=== PATIENT | female | born 1975 | race African-American/Black ===

== ENCOUNTER 2016-03-26 19:14 | Emergency (ER) | payer OTHER ==
[~2016-03-26] VITALS: Ht 167.6 cm; Wt 67.6 kg
[~2016-03-26 19:14] MED LIST: AMOXIL500 MG PO; BENTYL20 MG PO; CIPRO 500MG TA500 MG PO; CIPRO250 M1 PO; CLARITHROMYCIN500 MG PO; FLOMAX(MONOGRA0.4 MG PO; GOOD SENSE IBU200 MG PO; IBUPROFEN600 M1 PO; LEVSIN0.125 MG PO; NORCO 325 MG-51 TAB PO; PERCOCET 325 MG1 TA2 PO; PERCOCET 5-3251 EACH PO; PROTONIX 40MG T40 MG PO; TRAMADOL HCL50 M1 PO; ZOFRAN4 M1 PO; ZOFRAN4 M1 SL; ZOFRAN4 MG PO
[2016-03-26 19:19] VITALS: BP 118/82
--- NOTE | 2016-03-26 19:26 | ED GENERAL ADULT ---
History of Present Illness General Chief Complaint: General Adult Stated Complaint: PT HAS PAIN LOWER BACK ALL THE WAY DOWN Source: patient Exam Limitations: no limitations Vital Signs & Intake/Output Vital Signs & Intake/Output Vital Signs Date Time Temp Pulse Resp B/P Pulse O2 O2 Flow FiO2 Ox Delivery Rate 03/26 1945 98 Room Air 03/26 1918 99.2 99 16 118/82 98 Room Air ED Intake and Output 03/27 0000 03/26 1200 Intake Total 0 Output Total Balance 0 Intake, Oral 0 Patient 149 lb Weight Allergies Coded Allergies: NO KNOWN ALLERGIES (12/20/15) Reconcile Medications Cyclobenzaprine HCl 5 MG TABLET 1 TAB PO TIDPRN PRN MUSCLE STRAIN Hydrocodone/Acetaminophen (Vicodin 5-300 MG Tablet) 5 MG-300 MG TABLET 1 TAB PO BID PRN PAIN Oxycodone HCl/Acetaminophen (Percocet 5-325 MG Tablet) 5 MG-325 MG TABLET 1 TAB PO Q6 PAIN Tramadol HCl 50 MG TABLET 1 TAB PO BIDP PRN BREAKTHROUGH PAIN Tramadol HCl 50 MG TABLET 1 TAB PO BIDP PRN BREAKTHROUGH PAIN Triage Note: PT STATES HER RIGH HIP SHOOTING INTO HER GROIN HURTS. PT REPORTS PAIN STARTED 1 WEEK AGO. PT Triage Nurses Notes Reviewed? yes Onset: Gradual Duration: week(s): (1) Timing: no prior history Injury Environment: home Severity: moderate Severity Numbers: 8 Modifying Factors: Improves With: immobilization. Worsens With: movement. : No Patient currently breastfeeds: No HPI: Patient is a 40-year-old female presenting to the emergency department which is complaining of right low back pain, right hip pain it's been going on for 1 week at this time. Denies any specific injury. Pain is worse with movement. Denies any urinary frequency or urgency or dysuria. She is tried warm compresses and ibuprofen without relief. Denies numbness or tingling. Pain does radiate down her right thigh at times. No weakness in the legs. Denies abdominal pain. No recent travel. Denies history of similar symptoms. She does report that she's had back pain in the past. No heavy lifting. (SADE CARTWRIGHT) Past History Travel History Traveled to [place] past 21 day No Medical History Any Pertinent Medical History? 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 No (SADE CARTWRIGHT) Review of Systems Review of Systems Constitutional: Reports: no symptoms. Comments Review of systems: See HPI, All other systems negative. Constitutional, no chills fever or weight loss HEENT: No visual changes no sore throat no congestion Cardiovascular: No chest pain ,palpitation Skin, no jaundice no rashes Respiratory: No dyspnea cough sputum or hemoptysis GI: No nausea no vomiting : No dysuria No hematuria Muscle skeletal: no neck pain, Neurologic: No numbness no confusion Psych: No stress anxiety Immunology: No splenectomy or history of AIDS (SADE CARTWRIGHT) Physical Exam Physical Exam General Appearance: well developed/nourished, no apparent distress, alert, awake , comfortable Comments: Well-developed well-nourished person in no acute distress HEENT: Pupils equally round and reactive to light and accommodation. Nose is atraumatic. Neck: Normal inspection, full range of motionbeen tenderness. Back: no CVA tenderness. Tender to palpation in the lumbar right paraspinal region. Limited range of motion secondary to pain. Limited forward flexion of the back secondary to pain. Cardiovascular: Regular rate and rhythms no murmurs rubs or gallops, normal JVP Respiratory: Chest nontender. No respiratory distress.breath sounds clear to auscultation bilaterally Abdomen: Soft, nontender nondistended, no appreciable organomegaly. Normal bowel sounds. No ascites, no rebound or guarding. Extremity: No edema, no calf tenderness to palpation, normal and equal pulses. Tender to palpation over the right hip area. Positive tenderness to palpation over the right si joint. Pain with passive range of motion of the right hip especially with right hip abduction. Neuro: Alert oriented x3, motor sensory normal, patellar reflexes are 2+ bilaterally. Skin: No appreciable rash on exposed skin, skin is warm and dry. Psych: Mood and affect is normal, memory and judgment is normal. Core Measures ACS in differential dx? No CVA/TIA Diagnosis: No Severe Sepsis Present: No Septic Shock Present: No (SADE CARTWRIGHT) Progress Differential Diagnoses I considered the following diagnoses in my evaluation of the patient: Muscle strain, hip contusion, kidney stone, sciatica, UTI Plan of Care: Current Medications Sig/Simone Start time Last Medication Dose Stop Time Status Admin Ketorolac 30 MG ONE ONE 03/26 1929 UNVr Tromethamine 03/26 1930 (Toradol) Initial ED EKG: none Comments: 03/26/2016 7:37:57 PMPatient medicated with IM Toradol here in the emergency department for pain. Pain is reproducible exam and the right low back and right hip area. Limited range of motion secondary to pain. Patient not having any CVA tenderness or urinary symptoms are unlikely UTI or urological in nature. Likely muscle strain. No known injury or falls, unlikely fracture. Patient will be treated symptomatically with pain medication and muscle relaxers. No indication for x-ray at this time. Patient will return for worsening symptoms or concerns. (SADE CARTWRIGHT) Departure Departure Time of Disposition: 1925 Disposition: HOME OR SELF CARE Condition: Stable Clinical Impression Primary Impression: Hip strain Qualifiers: Encounter type: initial encounter Laterality: right Qualified Code: S76.011A - Strain of muscle, fascia and tendon of right hip, initial encounter Secondary Impressions: Back pain Qualifiers: Back pain location: low back pain Chronicity: acute Back pain laterality: right Sciatica presence: with sciatica Sciatica laterality: sciatica of right side Qualified Code: M54.41 - Lumbago with sciatica, right side Referrals: SAMMIE KOEHLER MD (PCP/Family) Additional Instructions: Follow-up with orthopedics if symptoms persist. Take Vicodin for severe pain. Take Flexeril as prescribed for muscle relaxes. Apply warm compresses. Return for worsening symptoms or concerns. Departure Forms: Customer Survey General Discharge Information Prescriptions: Current Visit Scripts Hydrocodone/Acetaminophen (Vicodin 5-300 MG Tablet) 1 TAB PO BID PRN PAIN #8 TAB Cyclobenzaprine HCl 1 TAB PO TIDPRN PRN MUSCLE STRAIN #15 TAB (SADE CARTWRIGHT) PA/MEDIA CENTER DIRECTOR SCHOOL Co-Sign Statement Statement: ED Attending supervision documentation- [] I saw and evaluated the patient. I have also reviewed all the pertinent lab results and diagnostic results. I agree with the findings and the plan of care as documented in the PA's/MEDIA CENTER DIRECTOR SCHOOL's documentation. [X] I have reviewed the ED Record and agree with the PA's/MEDIA CENTER DIRECTOR [employer]CHOOL's documentation. [] Additions or exceptions (if any) to the PAs/MEDIA CENTER DIRECTOR SCHOOL's note and plan are summarized below: [] (MALCOLM POTTS,LACY) Critical Care Note Critical Care Note Critical Care Time: non-applicable (SADE CARTWRIGHT)
[2016-03-26] MEDS ORDERED: VICODIN 5-3001 EACH PO (19:28)
[2016-03-26] MEDS ORDERED: CYCLOBENZAPRINE5 M2 PO (19:28)
== END 2016-03-26 19:48 ==
LOC: ERH 19:14
DX: S76.011A Strain of muscle, fascia and tendon of right hip, initial encounter (principal); M54.5 Low back pain; X58.XXXA Exposure to other specified factors, initial encounter
CPT/HCPCS: 96372; J1885

== ENCOUNTER 2016-04-22 15:06 | Emergency (ER) | payer OTHER ==
[~2016-04-22] VITALS: Ht 167.6 cm; Wt 65.8 kg
[~2016-04-22 15:06] MED LIST changes: +CYCLOBENZAPRINE5 M2 PO; +VICODIN 5-3001 EACH PO
[2016-04-22 15:12] VITALS: BP 126/86
--- NOTE | 2016-04-22 16:30 | ED MVC/FALL/TRAUMA COMPLAINT ---
History of Present Illness General Chief Complaint: Fall Stated Complaint: S/P FALL BACK AND RT LEG PAIN Source: patient, old records Exam Limitations: no limitations Vital Signs & Intake/Output Vital Signs & Intake/Output Vital Signs Date Time Temp Pulse Resp B/P Pulse O2 O2 Flow FiO2 Ox Delivery Rate 04/22 1512 97.7 88 20 126/86 99 Room Air Allergies Coded Allergies: NO KNOWN ALLERGIES (12/20/15) Reconcile Medications Cyclobenzaprine HCl 5 MG TABLET 1 TAB PO TIDPRN PRN MUSCLE STRAIN Hydrocodone/Acetaminophen (Vicodin 5-300 MG Tablet) 5 MG-300 MG TABLET 1 TAB PO BID PRN PAIN Oxycodone HCl/Acetaminophen (Percocet 5-325 MG Tablet) 5 MG-325 MG TABLET 1 TAB PO Q6 PAIN Oxycodone HCl/Acetaminophen (Percocet 5-325 MG Tablet) 5 MG-325 MG TABLET 1 TAB PO TID PRN BREAKTHROUGH PAIN Tramadol HCl 50 MG TABLET 1 TAB PO BIDP PRN BREAKTHROUGH PAIN Tramadol HCl 50 MG TABLET 1 TAB PO BIDP PRN BREAKTHROUGH PAIN Triage Note: PT TO ED C/O RIGHT SIDED PAIN, HIP, BUTTOCKS, LEG AND LOWER BACK PAIN. STATES FELL ON ICE 2 DAYS AGO. DENIES HEAD STRIKE. HAS TRIED OTC MEDS WITH NO RELIEF. Triage Nurses Notes Reviewed? yes Onset: Abrupt Duration: day(s): (2), constant Timing: recent history Severity: moderate Severity Numbers: 7 Injuries/Fall Location: back, pelvis Method of Injury: fall Loss of Consciousness: no loss of consciousness Modifying Factors: Improves With: rest. Worsens With: movement. Associated Symptoms: DENIES : No Patient currently breastfeeds: No HPI: 40-year-old female with history of chronic back pain presents emergency room complaining of right lower back right hip and buttock pain after she slipped and fell in the snow 2 days ago. She states she's had constant aching pain since that is worse with movement better at rest. She's been taking ibuprofen with no improvement. She did not hit her head there is no loss of consciousness. She denies any abdominal pain urinary symptoms. The pain radiates into her right thigh she denies any numbness tingling or weakness to her leg. She denies any knee foot or ankle pain there is no left leg or left back injury. She did not injure her neck or arms. There are no other modifying factors or associated symptoms (BRIAN JUARES) Past History Travel History Traveled to [place] past 21 day No Medical History Any Pertinent Medical History? 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 No (BRIAN JUARES) Review of Systems Review of Systems Constitutional: Reports: see HPI. All Other Systems: Reviewed and Negative Comments Review of systems: See HPI, All other systems negative. Constitutional, no chills no fever, no malaise HEENT: no sore throat no congestion Cardiovascular: No chest pain , no palpitation Skin, no jaundice no rashes, no change in skin Respiratory: No dyspnea no cough no sputum no hemoptysis GI: No nausea no vomiting, no diarrhea, no bloating/constipation : No dysuria Muscle skeletal: No joint pain, no joint swelling, back pain, no neck pain, Neurologic: No numbness no headache Psych: No stress Heme/endocrine: No bruising no bleeding Immunology: No lymphadenopathy (BRIAN JUARES) Physical Exam Physical Exam General Appearance: well developed/nourished, alert, awake Comments: Well-developed well-nourished person in no acute distress HEENT: Normal EENT exam; PERRL, EOMI, HEAD is atraumatic. moist mucous membranes. Neck: Supple, midline or paracervical tenderness, normal range of motion without pain or tenderness Back: Right sided paralumbar muscle tenderness to palpation no midline tenderness no ecchymosis or signs of trauma, no CVA tenderness. Full range of motion Cardiovascular: Regular rate and rhythms no murmurs rubs or gallops Respiratory: Chest nontender.There were no bony deformities, no asymmetry. No respiratory distress. Patient speaking in full complete sentences. Breath sounds clear to auscultation bilaterally: NO W/R/R Abdomen: Soft, nontender nondistended, no appreciable organomegaly. Normal bowel sounds. No rebound/guarding, upper Extremity: No edema, full range of motion of extremities, normal and equal pulses bilaterally, 5 out of 5 strength noted to bilateral upper extremities Hip/Pelvis: Atraumatic/Stable. FROM. No pain with pelvic compression Knee: Atraumatic/stable. FROM. No joint swelling, no effusion. No laxity. No pain with ROM Leg: Atraumatic. Nontender. No edema, 5 out of 5 strength in the lower extremity, normal dorsiflexion of great toe bilaterally, gross sensation is intact, patellar tendon reflex 2+ bilaterally. Ankle/Foot: Atraumatic/stable. Skin intact. FROM. No swelling, no effusion. No laxity on exam Pulses: Normal/equal DP/PT pulses bilaterally. Brisk cap refill Neuro: Alert oriented x3, motor sensory normal. There were no obvious focal neurologic abnormalities. Skin: No appreciable rash on exposed skin, skin is warm and dry. Psych: Mood and affect is normal, memory and judgment is normal. Core Measures ACS in differential dx? No Severe Sepsis Present: No Septic Shock Present: No (JUSTIN GREEN,BRIAN) Progress Differential Diagnosis: abd injury, C/T/L spine injury, ext injury, pelvis injury, pnemothorax, spinal cord injury Plan of Care: Orders Procedure Date/time Status XRY-LUMBOSACRAL SPINE AP & LAT 04/22 1642 Active XRY-HIP 2-3 VIEWS, RIGHT 04/22 164 Active X-rays ordered patient medicated with Percocet ambulatory to the room with steady gait Discussed with patient if her x-ray findings need for supportive care rest ice prescription for [place] was provided advised close follow-up with her primary care physician return anytime sooner with any concerns. Pt amb with steady gait upon discharge (JUSTIN GREEN,BRIAN) Diagnostic Imaging: Viewed by Me: Radiology Read. Discussed w/RAD: Radiology Read. Radiology Impression: PATIENT: SILKE DA SILVA PRESENT AGE: 40 PATIENT ACCOUNT NO: [id number] : 76 LOCATION: [facility] ORDERING PHYSICIAN: BRIAN GREEN SERVICE DATE: 04/22/16-1642 EXAM TYPE: RAD - XRY-LUMBOSACRAL SPINE AP & LAT EXAMINATION: XR LUMBOSACRAL SPINE CLINICAL INFORMATION: Fall. Pain. COMPARISON: Lumbar spine 03/03/2013 TECHNIQUE: AP and lateral views of the lumbosacral spine were obtained. Cone-down AP and lateral view of the lumbosacral junction FINDINGS: Normal variant of a partial L5 transitional vertebrae. The left transverse process articulates with the sacrum. Vertebrae have normal height and alignment. Lumbar disc height is normal. Facet joints are normal. Compared to prior study there is been no change. IMPRESSION: Normal lumbar spine. A DICTATED BY: SONI SAEZ MD DATE/TIME DICTATED:04/22/161857 [address] STENOGRAPHER:SANCHEZ DATE/TIME TRANSCRIBED:04/22/161857 CONFIDENTIAL, DO NOT COPY WITHOUT APPROPRIATE AUTHORIZATION. <Electronically signed in Other Vendor System> SIGNED BY: SONI SAEZ MD 04/22/161902, PATIENT: SILKE DA SILVA PRESENT AGE: 40 PATIENT ACCOUNT NO: [id number] : 76 LOCATION: [facility] ORDERING PHYSICIAN: BRIAN GREEN SERVICE DATE: 04/22/16 EXAM TYPE: RAD - XRY-HIP 2-3 VIEWS, RIGHT EXAMINATION: XR HIP, RIGHT CLINICAL INFORMATION: Right hip pain. COMPARISON: Right hip 03/03/2013 TECHNIQUE: Two views of the right hip. FINDINGS: Bones and soft tissues are normal. No fracture. Alignment is anatomic. Hip joint space is maintained. IMPRESSION: Normal right hip. DICTATED BY: SONI SAEZ MD DATE/TIME DICTATED:04/22/161856 [address] STENOGRAPHER:SANCHEZ DATE/TIME TRANSCRIBED:1856 CONFIDENTIAL, DO NOT COPY WITHOUT APPROPRIATE AUTHORIZATION. < Electronically signed in Other Vendor System> SIGNED BY: SONI SAEZ MD 1900 (JUSTIN GREEN,BRIAN) Departure Departure Time of Disposition: 1905 Disposition: HOME OR SELF CARE Condition: Stable Clinical Impression Primary Impression: Lumbar strain Secondary Impressions: Fall, Hip strain Referrals: RODO POTTS,SAMMIE (PCP/Family) Additional Instructions: Rest ice ibuprofen 600 mg every 8 hours, Brighton for breakthrough pain. Use caution as this is a narcotic highly addictive no driving drinking alcohol while taking. Follow-up with your primary care physician this week This prescription was sent to your pharmacy Departure Forms: Customer Survey General Discharge Information Prescriptions: Current Visit Scripts Oxycodone HCl/Acetaminophen (Percocet 5-325 MG Tablet) 1 TAB PO TID PRN BREAKTHROUGH PAIN #10 TAB (BRIAN JUARES) PA/GLUING MACHINE OPERATOR Co-Sign Statement Statement: ED Attending supervision documentation- [] I saw and evaluated the patient. I have also reviewed all the pertinent lab results and diagnostic results. I agree with the findings and the plan of care as documented in the PA's/GLUING MACHINE OPERATOR's documentation. [X] I have reviewed the ED Record and agree with the PA's/GLUING MACHINE OPERATOR's documentation. [] Additions or exceptions (if any) to the PAs/GLUING MACHINE OPERATOR's note and plan are summarized below: [] (ASHLEE JOSHI DO
[2016-04-22] MEDS ORDERED: PERCOCET 5-3251 EACH PO (18:48)
--- NOTE | 2016-04-22 19:01 | RADIOLOGY REPORT ---
EXAMINATION: XR HIP, RIGHT CLINICAL INFORMATION: Right hip pain. COMPARISON: Right hip 03/03/2013 TECHNIQUE: Two views of the right hip. FINDINGS: Bones and soft tissues are normal. No fracture. Alignment is anatomic. Hip joint space is maintained. IMPRESSION: Normal right hip.
--- NOTE | 2016-04-22 19:03 | RADIOLOGY REPORT ---
EXAMINATION: XR LUMBOSACRAL SPINE CLINICAL INFORMATION: Fall. Pain. COMPARISON: Lumbar spine 03/03/2013 TECHNIQUE: AP and lateral views of the lumbosacral spine were obtained. Cone-down AP and lateral view of the lumbosacral junction FINDINGS: Normal variant of a partial L5 transitional vertebrae. The left transverse process articulates with the sacrum. Vertebrae have normal height and alignment. Lumbar disc height is normal. Facet joints are normal. Compared to prior study there is been no change. IMPRESSION: Normal lumbar spine. A
== END 2016-04-22 19:08 ==
LOC: ERH 15:06
DX: S39.012A Strain of muscle, fascia and tendon of lower back, initial encounter (principal); S76.011A Strain of muscle, fascia and tendon of right hip, initial encounter; W00.0XXA Fall on same level due to ice and snow, initial encounter
CPT/HCPCS: 72100; 73502-RT

== ENCOUNTER 2016-05-21 11:57 | Emergency (ER) | payer OTHER ==
[~2016-05-21] VITALS: Ht 167.6 cm; Wt 59.9 kg
--- NOTE | 2016-05-21 13:01 | ED GI/GU/ABDOMINAL COMPLAINT ---
History of Present Illness General Chief Complaint: Female Urogenital Problems Stated Complaint: ABD PAIN/? KIDNEY STONES Source: patient Exam Limitations: no limitations Vital Signs & Intake/Output Vital Signs & Intake/Output Vital Signs Date Time Temp Pulse Resp B/P Pulse O2 O2 Flow FiO2 Ox Delivery Rate 05/21 2021 78 18 115/62 97 Room Air 05/21 1830 78 18 117/61 99 Room Air ED Intake and Output 05/22 0000 05/21 1200 Intake Total 1000 Output Total Balance 1000 Intake, IV 1000 Patient 132 lb Weight Allergies Coded Allergies: NO KNOWN ALLERGIES (12/20/15) Reconcile Medications Ondansetron (Zofran Odt) 4 MG TAB.RAPDIS 1 TAB SL TID PRN nausea Oxycodone HCl/Acetaminophen (Percocet 5-325 MG Tablet) 5 MG-325 MG TABLET 1 TAB PO BID PRN pain Triage Note: 40 Y/O FEMALE C/O R HIP AND R FLANK PAIN; HX KIDNEY STONES AND STATES THIS FEELS SIMILIAR. REPORTS "A LITTLE" BLOOD IN URINE. ALSO REPORTS PAIN WITH URINATION. TOOK ALEVE AT 0900 WITH NO RELIEF. Triage Nurses Notes Reviewed? yes ? N Is pt currently ? No HPI: THIS PATIENT is a 40-year-old female who presented to the emergency department today for evaluation of bilateral flank pain. The patient reported that the pain began yesterday and has been worsening. It is constant and gets worse in waves. The pain except a 10 out of 10, sharp, and radiates to bilateral groin regions. The patient reported associated nausea, but no vomiting. She reported that she has had kidney stones in the past in the pain feels similar. She reported some blood in her urine as well as burning and frequency. No urgency. The patient denied any fevers, chills, chest pain, difficulty breathing, or any other associated symptoms. She tried taking Advil without any relief of her symptoms. (CRISTHIAN LOPEZ,MARY ANNE) Past History Travel History Traveled to [place] past 21 day No Medical History Any Pertinent Medical History? see below for history Neurological: NONE EENT: NONE Cardiovascular: NONE Respiratory: NONE Gastrointestinal: PANCREATITIS Hepatic: NONE Renal: nephrolithiasis, KIDNEY STENT/REMOVED Musculoskeletal: NONE Psychiatric: ON METHADONE Endocrine: NONE Blood Disorders: anemia Cancer(s): NONE WELDER PLASTIC/Reproductive: OVARIAN CYST Surgical History Surgical History: non-contributory, N Psychosocial History What is your primary language Nepali Tobacco Use: Current Daily Use Daily Tobacco Use Amount/Type: => 5 Cigarettes daily Family History Hx Contributory? No (MARY ANNE MORROW PA-C) Review of Systems Review of Systems Constitutional: Reports: no symptoms. EENTM: Reports: no symptoms. Respiratory: Reports: no symptoms. Cardiovascular: Reports: no symptoms. GI: Reports: see HPI. Genitourinary: Reports: see HPI. Musculoskeletal: Reports: no symptoms. Skin: Reports: no symptoms. Neurological/Psychological: Reports: no symptoms. All Other Systems: Reviewed and Negative (MARY ANNE MORROW PA-C) Physical Exam Physical Exam Gastrointestinal: normal bowel sounds, soft, non-tender, no organomegaly, NO PERITONEAL SIGNS. nO REBOUND OR GUARDING. nO mCbURNEY'S POINT TENDERNESS. nEGATIVE Juarez SIGN Comments: Well-developed well-nourished person in no acute distress HEENT: Normal EENT exam, head normocephalic, moist mucous membranes Neck: Supple, no lymphadenopathy Back: Normal gait. No midline tenderness. Bilateral CVA tenderness Cardiovascular: Regular rate and rhythm with no murmurs Respiratory: No respiratory distress. Speaking sentences Extremity: Normal and equal pulses Neuro: Alert oriented x3, cranial nerves II through XII grossly intact. Skin: No appreciable rash on exposed skin, skin is warm and dry. Psych: Mood and affect is normal Core Measures ACS in differential dx? No Severe Sepsis Present: No Septic Shock Present: No (MARY ANNE MORROW PA-C) Progress Differential Diagnosis: appendicitis, biliary colic, bowel obstruction, colon cancer, cholecystitis, diverticulitis, ectopic , endometritis, gastritis, hepatitis, ischemic bowel, inflamm bowel dis, ovarian cyst, ovarian torsion, pancreatitis, PID/cervicitis, PUD/GERD, perforated viscous, threatened AB, UTI/pyelo Plan of Care: Orders Procedure Date/time Status CULTURE,URINE 05/21 1234 Active COMPREHENSIVE METABOLIC PANEL 05/21 1234 Complete CBC WITHOUT DIFFERENTIAL 05/21 1234 Complete URINE 05/21 1209 Complete URINALYSIS 05/21 1209 Complete Current Medications Sig/Simone Start time Last Medication Dose Stop Time Status Admin Oxycodone/ 1 TAB ONCE ONE 05/21 1944 UNVr Acetaminophen 05/21 1945 (Percocet) Laboratory Tests 05/21/16 1618: Urine Color YEL, Urine Clarity CLEAR, Urine pH 6.5, Ur Specific [place] 1.025, Urine Protein NEG, Urine Ketones 15 H, Urine Nitrite NEG, Urine Bilirubin NEG, Urine Urobilinogen 0.2, Ur Leukocyte Esterase NEG, Ur Microscopic EXAM NOT REQUIRED, Urine Hemoglobin NEG, Urine Glucose NEG, Urine Test NEGATIVE 05/21/16 1256: Anion Gap 11, Estimated GFR > 60, BUN/Creatinine Ratio 11.3, Glucose 90, Calcium 9.6, Total Bilirubin 0.5, AST 17, ALT 36, Alkaline Phosphatase 74, Total Protein 7.6, Albumin 4.2, Globulin 3.4, Albumin/Globulin Ratio 1.2, CBC w Diff NO MAN DIFF REQ, RBC 3.68 L, MCV 90.8, MCH 29.9, RDW 15.5 H, MPV 8.2, Gran % 72.5, Lymphocytes % 19.6 L, Monocytes % 5.5, Eosinophils % 0.4, Basophils % 2.0, Absolute Granulocytes 6.3, Absolute Lymphocytes 1.7, Absolute Monocytes 0.5, Absolute Eosinophils 0, Absolute Basophils 0.2, PUBS MCHC 32.9 L Microbiology 05/21 1618 URINE ROUT: Urine Culture - RECD Diagnostic Imaging: Viewed by Me: CT Scan. Discussed w/RAD: CT Scan. Radiology Impression: PATIENT: SILKE DA SILVA PRESENT AGE: 40 PATIENT ACCOUNT NO: [id number] : 76 LOCATION: [facility] ORDERING PHYSICIAN: MARY ANNE MORROW PA-C SERVICE DATE: 05/21/16 EXAM TYPE: CAT - CT ABD & PELVIS W IV CONTRAST EXAMINATION: CT ABDOMEN AND PELVIS WITH CONTRAST CLINICAL INFORMATION: Flank pain. Rule out kidney stone. COMPARISON: CT abdomen 12/20/2015 TECHNIQUE: Multidetector volumetric imaging was performed of the abdomen and pelvis before and after the IV administration of 95 mL of Optiray 320 intravenous contrast. Sagittal and coronal reformatted images were obtained on the technologist's workstation. DLP: 231 mGy-cm FINDINGS : LUNG BASES: There is platelike atelectasis left lower lobe. The heart size is normal. LIVER, GALLBLADDER, AND BILIARY TREE: The liver is normal in size, shape , and attenuation. No focal hepatic lesion or biliary ductal dilatation is present. The gallbladder is unremarkable with no evidence of radiopaque gallstones, gallbladder wall thickening, or obvious pericholecystic inflammatory changes. PANCREAS: Unremarkable. SPLEEN: Unremarkable. ADRENAL GLANDS: Unremarkable. KIDNEYS AND URETERS: The kidneys are normal in size, shape, and attenuation. There are 2 mm small radiopaque calculi in upper, mid and lower pole left kidney approximately 5 in number. No focal caliectasis or hydronephrosis seen. There are 1 mm calculi in upper, mid and lower pole, approximately 3 radiopaque calculi in right kidney. There is no hydronephrosis. BLADDER: Unremarkable. GASTROINTESTINAL TRACT: Scattered stool is seen throughout the colon without distention. The small bowel loops are normal caliber. Appendix is not seen with certainty. No inflammatory process seen in the abdomen. ABDOMINAL WALL: There is umbilical hernia containing intraperitoneal fat is noted. LYMPH NODES: Normal. VASCULAR: Unremarkable. PELVIC VISCERA: The uterus is anteverted. There is a 2 cm hypodensity left adnexa measuring water density suggestive of left ovarian cyst. It is best visualized image 58, series 2. No free fluid seen in the cul-de-sac. OSSEOUS STRUCTURES: No lytic or sclerotic process seen. IMPRESSION: Small bilateral nephrolithiasis without hydroureteronephrosis. Suspect small left ovarian 2 cm cyst. Mild constipation. DICTATED BY: PATRICIA LOYOLA MD DATE/TIME DICTATED:1819 PROFESSOR OF FINANCE:DEB DATE/TIME TRANSCRIBED:05/21/161819 CONFIDENTIAL, DO NOT COPY WITHOUT APPROPRIATE AUTHORIZATION. <Electronically signed in Other Vendor System> SIGNED BY: PATRICIA LOYOLA MD 05/21/161835 Initial ED EKG: none (CRISTHIAN LPOEZ,MARY ANNE) Departure Departure Disposition: HOME OR SELF CARE Condition: Stable Clinical Impression Primary Impression: Flank pain Referrals: MELISSA POTTS,CASH KOEHLER MD,SAMMIE (PCP/Family) Additional Instructions: Please take medication for pain as prescribed. Take medication for nausea as needed. Rest and be sure to stay hydrated. Please call to make a follow-up appointment with the urologist tomorrow. Departure Forms: Customer Survey General Discharge Information Prescriptions: Current Visit Scripts Oxycodone HCl/Acetaminophen (Percocet 5-325 MG Tablet) 1 TAB PO BID PRN pain #8 TAB Ondansetron (Zofran Odt) 1 TAB SL TID PRN nausea #10 TAB (CRISTHIAN LOPEZ,MARY ANNE) PA/OPTICAL EFFECTS CAMERA OPERATOR Co-Sign Statement Statement: ED Attending supervision documentation- [] I saw and evaluated the patient. I have also reviewed all the pertinent lab results and diagnostic results. I agree with the findings and the plan of care as documented in the PA's/OPTICAL EFFECTS CAMERA OPERATOR's documentation. [X] I have reviewed the ED Record and agree with the PA's/OPTICAL EFFECTS CAMERA OPERATOR's documentation. [] Additions or exceptions (if any) to the PAs/OPTICAL EFFECTS CAMERA OPERATOR's note and plan are summarized below: [] (MALCOLM POTTS,LACY)
[2016-05-21 13:02] LABS: ABSOLUTE BASOPHIL COUNT 0.2 /CUMM (0.0-0.2); ABSOLUTE EOSINOPHIL COUNT 0 /CUMM (0.0-0.7); ABSOLUTE GRANULOCYTE CT 6.3 /CUMM (1.4-6.5); ABSOLUTE LYMPH COUNT 1.7 /CUMM (1.2-3.4); ABSOLUTE MONOCYTE COUNT 0.5 /CUMM (0.10-0.60); EOSINOPHIL % 0.4 % (0-5); GRANULOCYTE % 72.5 % (42.2-75.2); HEMATOCRIT 33.4 % (37-47); MEAN CORPUSCULAR HGB 29.9 PG (27.0-31.0); MEAN CORPUSCULAR HGB CONC 32.9 G/DL (33.0-37.0); MEAN CORPUSCULAR VOLUME 90.8 FL (81.0-99.0); MEAN PLATELET VOLUME 8.2 FL (7.4-10.4); PLATELET COUNT 345 /CUMM (130-400); RBC DISTRIBUTION WIDTH 15.5 % (11.5-14.5); RED BLOOD CELL CT 3.68 /CUMM (4.20-5.40); WHITE BLOOD CELL COUNT 8.7 /CUMM (4.8-10.8)
--- NOTE | 2016-05-21 18:36 | CT SCAN REPORT ---
EXAMINATION: CT ABDOMEN AND PELVIS WITH CONTRAST CLINICAL INFORMATION: Flank pain. Rule out kidney stone. COMPARISON: CT abdomen 12/20/2015 TECHNIQUE: Multidetector volumetric imaging was performed of the abdomen and pelvis before and after the IV administration of 95 mL of Optiray 320 intravenous contrast. Sagittal and coronal reformatted images were obtained on the technologist's workstation. DLP: 231 mGy-cm FINDINGS: LUNG BASES: There is platelike atelectasis left lower lobe. The heart size is normal. LIVER, GALLBLADDER, AND BILIARY TREE: The liver is normal in size, shape, and attenuation. No focal hepatic lesion or biliary ductal dilatation is present. The gallbladder is unremarkable with no evidence of radiopaque gallstones, gallbladder wall thickening, or obvious pericholecystic inflammatory changes. PANCREAS: Unremarkable. SPLEEN: Unremarkable. ADRENAL GLANDS: Unremarkable. KIDNEYS AND URETERS: The kidneys are normal in size, shape, and attenuation. There are 2 mm small radiopaque calculi in upper, mid and lower pole left kidney approximately 5 in number. No focal caliectasis or hydronephrosis seen. There are 1 mm calculi in upper, mid and lower pole, approximately 3 radiopaque calculi in right kidney. There is no hydronephrosis. BLADDER: Unremarkable. GASTROINTESTINAL TRACT: Scattered stool is seen throughout the colon without distention. The small bowel loops are normal caliber. Appendix is not seen with certainty. No inflammatory process seen in the abdomen. ABDOMINAL WALL: There is umbilical hernia containing intraperitoneal fat is noted. LYMPH NODES: Normal. VASCULAR: Unremarkable. PELVIC VISCERA: The uterus is anteverted. There is a 2 cm hypodensity left adnexa measuring water density suggestive of left ovarian cyst. It is best visualized image 58, series 2. No free fluid seen in the cul-de-sac. OSSEOUS STRUCTURES: No lytic or sclerotic process seen. IMPRESSION: Small bilateral nephrolithiasis without hydroureteronephrosis. Suspect small left ovarian 2 cm cyst. Mild constipation.
[2016-05-21] MEDS ORDERED: ZOFRAN ODT4 M1 SL (19:45)
[2016-05-21] MEDS ORDERED: PERCOCET 5-3251 EACH PO (19:45)
[2016-05-21 20:22] VITALS: BP 115/62
== END 2016-05-21 20:24 ==
LOC: ERH 11:57
PROVIDERS: Physician Assistant
DX: R10.9 Unspecified abdominal pain (principal)
CPT/HCPCS: 74177; 81003; 81025; 87086; 96374; 96375; 96376; J0131; J2405

== ENCOUNTER 2016-06-28 14:55 | Emergency (ER) | payer OTHER ==
[~2016-06-28] VITALS: Ht 167.6 cm; Wt 68.0 kg
[~2016-06-28 14:55] MED LIST changes: +ZOFRAN ODT4 M1 SL
--- NOTE | 2016-06-28 16:50 | ED GI/GU/ABDOMINAL COMPLAINT ---
History of Present Illness General Chief Complaint: Abdominal Pain/Flank Pain Stated Complaint: ABD PAIN, R FLANK PAIN, HX OF KIDNEY STONES Source: patient, family Exam Limitations: no limitations Vital Signs & Intake/Output Vital Signs & Intake/Output Vital Signs Date Time Temp Pulse Resp B/P B/P Pulse O2 O2 Flow FiO2 Mean Ox Delivery Rate 06/28 2048 71 22 124/77 97 06/28 1957 98.4 63 20 120/80 100 Room Air 06/28 1512 98.1 89 20 133/85 100 Room Air Allergies Coded Allergies: No Known Allergies (06/28/16) Reconcile Medications Hyoscyamine (Levsin) 0.125 MG TABLET 1 TAB PO Q4 PRN ABDOMINAL SPASMS Ibuprofen (I-Prin) 200 MG TABLET 2-4 TAB PO PRN PAIN (Reported) Oxycodone HCl/Acetaminophen (Percocet 5-325 MG Tablet) 5 MG-325 MG TABLET 1 TAB PO BID PRN PAIN Triage Note: TRIAGE: PT TO ER C/C PAIN TO RT FLANK WHICH WRAPS AROUND TO MID/UPPER ABD. ONSET 3 DAYS AGO. WAS INTERMITTENT BUT NOW CONSTANT SINCE YESTERDAY. ALSO STARTED WITH A FEVER LAST NIGHT (100.1). AFEBRILE AT TRIAGE. LAST DOSE OF MOTRIN 06:00. HX OF KIDNEY STONES REQUIRING STENTS, FEELS SAME. Triage Nurses Notes Reviewed? yes ? N Is pt currently ? No Onset: Gradual Duration: day(s): (3) Timing: recent history Quality/Severity: sharpness Location: right flank, right lower quadrant Radiation: RLQ Activities at Onset: none Prior Abdominal Problems: similar symptoms Past Sexual History: Unobtainable at this time HPI: Patient is a 40-year-old female presenting to the emergency department with chief complaint of right flank pain has been going on for the past 2-3 days worse this morning. Pain radiates to the right lower quadrant. Patient also reports fever up to 101 at home. Positive nausea but no vomiting. History of similar symptoms of the kidney stone. Has been taking Motrin at home without relief. Pain currently moderate. No sick contacts or recent travel. Last time she had kidney stones was a month ago. Patient also complaining of diarrhea over the past 2-3 days. About 4 or 5 episodes daily. Nonbloody. No recent antibiotic use. (SADE CARTWRIGHT) Past History Travel History Traveled to [place] past 21 day No Medical History Any Pertinent Medical History? 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 No (SADE CARTWRIGHT) Review of Systems Review of Systems Constitutional: Reports: fever. Comments Review of systems: See HPI, All other systems negative. Constitutional, no chills fever or weight loss HEENT: No visual changes no sore throat no congestion Cardiovascular: No chest pain ,palpitation , orthopnea or ankle swelling Skin, no jaundice no rashes Respiratory: No dyspnea cough sputum or hemoptysis GI: no vomiting : No dysuria No hematuria Muscle skeletal: no neck pain, Neurologic: No numbness no confusion Psych: No stress anxiety or depression,. Heme/endocrine: No bruising no bleeding no polyuria or polydipsia Immunology: No splenectomy or history of AIDS (SADE CARTWRIGHT) Physical Exam Physical Exam General Appearance: well developed/nourished, alert, awake, anxious, mild distress Gastrointestinal: normal bowel sounds, soft, tenderness Comments: Well-developed well-nourished person in no acute distress HEENT:Nose is atraumatic. Neck :normal inspection REGular rate and rhythms no murmurs rubs or gallops, normal JVP Respiratory: Chest nontender. No respiratory distress.breath sounds clear to auscultation bilaterally Abdomen: Soft, tender to palpation in the right lower quadrant, nondistended, no appreciable organomegaly. Normal bowel sounds. No ascites. Tender department palpation over the McBurney's point. Extremity: No edema Neuro: Alert oriented x3 Skin: No appreciable rash on exposed skin, skin is warm and dry. Psych: Mood and affect is normal, memory and judgment is normal. Core Measures ACS in differential dx? No Severe Sepsis Present: No Septic Shock Present: No (SADE CARTWRIGHT) Progress Differential Diagnosis: appendicitis, biliary colic, gastritis, ischemic bowel, ovarian cyst, UTI/pyelo, GASTRITIS, CHRONIC ABDOMINAL PAIN Plan of Care: Orders Procedure Date/time Status Add-on Test (ER Only) 06/28 1850 Active Add-on Test (ER Only) 06/28 1740 Active LIPASE 06/28 1699 Complete HUMAN BETA HCG SCREEN 06/28 1699 Complete AMYLASE 06/28 1699 Complete COMPREHENSIVE METABOLIC PANEL 06/28 164 Complete CBC WITHOUT DIFFERENTIAL 06/28 1645 Complete URINALYSIS 06/28 151 Complete Laboratory Tests 06/28/161928: Urinalysis LIGHT H, Urine Color YEL, Urine Clarity HAZY H, Urine pH 6.0, Ur Specific [place] 1.025, Urine Protein TRACE H, Urine Ketones >=80, Urine Nitrite NEG, Urine Bilirubin NEG, Urine Urobilinogen 0.2, Ur Leukocyte Esterase NEG, Ur Microscopic SEDIMENT EXAMINED, Urine RBC 1-3, Urine WBC RARE, Ur Epithelial Cells MOD H, Urine Bacteria FEW H, Urine Mucus MOD H, Urine Hemoglobin LARGE H, Urine Glucose NEG 06/28/161699: Anion Gap 14, Estimated GFR > 60, BUN/Creatinine Ratio 11.3, Glucose 80, Calcium 9.2, Total Bilirubin 0.5, AST 13 L, ALT 21, Alkaline Phosphatase 64, Total Protein 7.7, Albumin 4.4, Globulin 3.3, Albumin/Globulin Ratio 1.3, Amylase 65, Lipase 206, Total Beta HCG NEGATIVE, CBC w Diff NO MAN DIFF REQ, RBC 3.65 L, MCV 87.6, MCH 28.5, RDW 16.4 H, MPV 8.6, Gran % 67.0, Lymphocytes % 26.7, Monocytes % 5.8, Eosinophils % 0.5, Basophils % 0 L, Absolute Granulocytes 5.4, Absolute Lymphocytes 2.2, Absolute Monocytes 0.5, Absolute Eosinophils 0, Absolute Basophils 0, PUBS MCHC 32.5 L Diagnostic Imaging: Viewed by Me: CT Scan. Discussed w/RAD: CT Scan. Radiology Impression: PATIENT: SILKE DA SILVA PRESENT AGE: 40 PATIENT ACCOUNT NO: [id number] : 76 LOCATION: [facility] ORDERING PHYSICIAN: SADE GREEN SERVICE DATE: 06/28/16-1809 EXAM TYPE: CAT - CT ABD & PELVIS W/O IV CONTRAS EXAMINATION: CT ABDOMEN AND PELVIS WITHOUT CONTRAST CLINICAL INFORMATION: Right flank pain. Rule out kidney stone or appendicitis COMPARISON: 05/21/2016 and earlier TECHNIQUE: Multidetector volumetric imaging was performed from the lung bases through the pubic symphysis. Sagittal and coronal reformatted images were obtained on the technologist workstation. FINDINGS: The lack of intravenous contrast limits evaluation of the solid visceral organs including the liver, spleen, pancreas, and kidneys. LUNG BASES: The visualized lung bases are unremarkable. LIVER, GALLBLADDER, AND BILIARY TREE: Limited non-contrast evaluation is normal. No gross focal hepatic lesion. Normal liver size and contour. No gross biliary ductal dilation. The gallbladder is unremarkable with no evidence of radiopaque gallstones, gallbladder wall thickening, or obvious pericholecystic inflammatory changes. PANCREAS: Limited non-contrast evaluation is normal. No mike- pancreatic fluid. SPLEEN: Limited non-contrast evaluation is normal. ADRENAL GLANDS: Normal; no adrenal mass. KIDNEYS AND URETERS: There is bilateral nonobstructive nephrolithiasis. There is a 2 mm right lower pole calculus. There are two 2-3 mm left mid-lower renal calculi and a 2-3 mm left upper pole calculus. No hydronephrosis seen bilaterally. GASTROINTESTINAL TRACT: The small bowel and colon are nondilated. Best seen in axial image 53/83, there is mild to moderate circumferential wall thickening of the distal sigmoid colon. The proximal sigmoid colon is collapsed. Likewise the left colon is largely collapsed, making it difficult to assess for wall thickening. Scattered colonic diverticula are seen with moderate diverticulosis of the sigmoid colon. No pericolonic inflammatory changes or findings to suggest diverticulitis. The appendix is clearly seen in image 46/83 and normal. ABDOMINAL WALL: There is a fat-containing umbilical hernia. There is asymmetry of the left anterior pelvic wall, which is atrophic compared to the right. LYMPH NODES: No pathologically enlarged lymph nodes in the abdomen or pelvis. VASCULAR: Normal caliber abdominal aorta. BLADDER: No calculi. PELVIC VISCERA: Normal noncontrast appearance of the uterus and ovaries. OSSEOUS STRUCTURES: No acute or suspicious osseous abnormalities. IMPRESSION: Bilateral nonobstructing nephrolithiasis without evidence of obstructive uropathy. Normal appendix. There is moderate circumferential wall thickening of the distal sigmoid colon. A focal colitis is possible. No pericolonic fluid or fat stranding to suggest diverticulitis. Recommend correlation with symptoms. DICTATED BY: ELIANA DE LA TORRE MD DATE/TIME DICTATED:06/28/162003 HYDROPONICS GROWER:DEB DATE/TIME TRANSCRIBED:2003 CONFIDENTIAL, DO NOT COPY WITHOUT APPROPRIATE AUTHORIZATION. < Electronically signed in Other Vendor System> SIGNED BY: ELIANA DE LA TORRE MD 06/28/162013 Initial ED EKG: none Comments: Patient medicated with fluids and Toradol on arrival for pain. Unable to obtain ultrasounds time. We'll obtain CT scan to rule out kidney stone. Patient currently on menstrual cycle. Patient informed of all of her results. Likely nonspecific colitis. Patient will be treated symptomatically. Will follow-up with GI if symptoms persist. Unable to provide stool sample here. (SADE CARTWRIGHT) Departure Departure Time of Disposition: 2015 Disposition: HOME OR SELF CARE Condition: Stable Clinical Impression Primary Impression: Abdominal pain Qualifiers: Abdominal location: right lower quadrant Qualified Code: R10.31 - Right lower quadrant pain Secondary Impressions: Diarrhea Qualifiers: Diarrhea type: unspecified type Qualified Code: R19.7 - Diarrhea, unspecified Referrals: SAMMIE KOEHLER MD (PCP/Family) Additional Instructions: Follow-up with your primary care physician called to make an appointment. Increase fluids. Take Levsin as prescribed to help with abdominal discomfort. Return for worsening symptoms or concerns. Departure Forms: Customer Survey General Discharge Information Prescriptions: Current Visit Scripts Hyoscyamine (Levsin) 1 TAB PO Q4 PRN ABDOMINAL SPASMS #20 TAB Oxycodone HCl/Acetaminophen (Percocet 5-325 MG Tablet) 1 TAB PO BID PRN PAIN #10 TAB (SADE CARTWRIGHT) PA/RESIDENTIAL SALES Co-Sign Statement Statement: ED Attending supervision documentation- [] I saw and evaluated the patient. I have also reviewed all the pertinent lab results and diagnostic results. I agree with the findings and the plan of care as documented in the PA's/RESIDENTIAL SALES's documentation. [X] I have reviewed the ED Record and agree with the PA's/RESIDENTIAL SALES's documentation. [] Additions or exceptions (if any) to the PAs/RESIDENTIAL SALES's note and plan are summarized below: [] (CONOR POTTS,MADELINE Duenas)
[2016-06-28 17:17] LABS: ABSOLUTE BASOPHIL COUNT 0 /CUMM (0.0-0.2); ABSOLUTE EOSINOPHIL COUNT 0 /CUMM (0.0-0.7); ABSOLUTE GRANULOCYTE CT 5.4 /CUMM (1.4-6.5); ABSOLUTE LYMPH COUNT 2.2 /CUMM (1.2-3.4); ABSOLUTE MONOCYTE COUNT 0.5 /CUMM (0.10-0.60); BASOPHIL % 0 % (0.0-2.0); EOSINOPHIL % 0.5 % (0-5); MEAN CORPUSCULAR HGB 28.5 PG (27.0-31.0); MEAN CORPUSCULAR HGB CONC 32.5 G/DL (33.0-37.0); MEAN CORPUSCULAR VOLUME 87.6 FL (81.0-99.0); MEAN PLATELET VOLUME 8.6 FL (7.4-10.4); PLATELET COUNT 275 /CUMM (130-400); RBC DISTRIBUTION WIDTH 16.4 % (11.5-14.5); RED BLOOD CELL CT 3.65 /CUMM (4.20-5.40); WHITE BLOOD CELL COUNT 8.1 /CUMM (4.8-10.8)
[2016-06-28] MEDS ORDERED: I-PRIN200 MG PO (18:23)
--- NOTE | 2016-06-28 20:14 | CT SCAN REPORT ---
EXAMINATION: CT ABDOMEN AND PELVIS WITHOUT CONTRAST CLINICAL INFORMATION: Right flank pain. Rule out kidney stone or appendicitis COMPARISON: 05/21/2016 and earlier TECHNIQUE: Multidetector volumetric imaging was performed from the lung bases through the pubic symphysis. Sagittal and coronal reformatted images were obtained on the technologist workstation. FINDINGS: The lack of intravenous contrast limits evaluation of the solid visceral organs including the liver, spleen, pancreas, and kidneys. LUNG BASES: The visualized lung bases are unremarkable. LIVER, GALLBLADDER, AND BILIARY TREE: Limited non-contrast evaluation is normal. No gross focal hepatic lesion. Normal liver size and contour. No gross biliary ductal dilation. The gallbladder is unremarkable with no evidence of radiopaque gallstones, gallbladder wall thickening, or obvious pericholecystic inflammatory changes. PANCREAS: Limited non-contrast evaluation is normal. No mike-pancreatic fluid. SPLEEN: Limited non-contrast evaluation is normal. ADRENAL GLANDS: Normal; no adrenal mass. KIDNEYS AND URETERS: There is bilateral nonobstructive nephrolithiasis. There is a 2 mm right lower pole calculus. There are two 2-3 mm left mid-lower renal calculi and a 2-3 mm left upper pole calculus. No hydronephrosis seen bilaterally. GASTROINTESTINAL TRACT: The small bowel and colon are nondilated. Best seen in axial image 53/83, there is mild to moderate circumferential wall thickening of the distal sigmoid colon. The proximal sigmoid colon is collapsed. Likewise the left colon is largely collapsed, making it difficult to assess for wall thickening. Scattered colonic diverticula are seen with moderate diverticulosis of the sigmoid colon. No pericolonic inflammatory changes or findings to suggest diverticulitis. The appendix is clearly seen in image 46/83 and normal. ABDOMINAL WALL: There is a fat-containing umbilical hernia. There is asymmetry of the left anterior pelvic wall, which is atrophic compared to the right. LYMPH NODES: No pathologically enlarged lymph nodes in the abdomen or pelvis. VASCULAR: Normal caliber abdominal aorta. BLADDER: No calculi. PELVIC VISCERA: Normal noncontrast appearance of the uterus and ovaries. OSSEOUS STRUCTURES: No acute or suspicious osseous abnormalities. IMPRESSION: Bilateral nonobstructing nephrolithiasis without evidence of obstructive uropathy. Normal appendix. There is moderate circumferential wall thickening of the distal sigmoid colon. A focal colitis is possible. No pericolonic fluid or fat stranding to suggest diverticulitis. Recommend correlation with symptoms.
[2016-06-28] MEDS ORDERED: LEVSIN0.125 M1 PO (20:20)
[2016-06-28] MEDS ORDERED: PERCOCET 5-3251 EACH PO (20:20)
[2016-06-28 20:49] VITALS: BP 124/77
== END 2016-06-28 20:50 ==
LOC: ERH 14:55
PROVIDERS: Physician Assistant
DX: R10.31 Right lower quadrant pain (principal); R19.7 Diarrhea, unspecified
CPT/HCPCS: 74176; 81001; 81025; 96374; 96375; J1885

== ENCOUNTER 2017-08-05 06:46 | Emergency (ER) | payer OTHER ==
[~2017-08-05] VITALS: Ht 167.6 cm; Wt 66.7 kg
[~2017-08-05 06:46] MED LIST changes: +I-PRIN200 MG PO; +LEVSIN0.125 M1 PO
--- NOTE | 2017-08-05 07:35 | ED GENERAL ADULT ---
History of Present Illness General Chief Complaint: General Adult Stated Complaint: RIGHT SIDE BACK PAIN, NAUSEA X 3DAYS PER PT Source: patient Exam Limitations: no limitations Vital Signs & Intake/Output Vital Signs & Intake/Output Vital Signs Date Time Temp Pulse Resp B/P B/P Pulse O2 O2 Flow FiO2 Mean Ox Delivery Rate 08/05 1237 98.2 64 18 98/52 96 08/05 1043 99.0 70 18 102/58 96 Room Air 08/05 0838 98.5 64 18 94/56 100 Room Air 08/05 0704 98.5 88 20 112/76 98 Room Air Allergies Coded Allergies: No Known Allergies (06/28/16) Reconcile Medications Hydromorphone HCl (Dilaudid) 2 MG TABLET 2 TAB PO Q6P PRN PAIN Hyoscyamine (Levsin) 0.125 MG TABLET 1 TAB PO Q4 PRN ABDOMINAL SPASMS Ibuprofen (I-Prin) 200 MG TABLET 2-4 TAB PO PRN PAIN (Reported) Oxycodone HCl/Acetaminophen (Percocet 5-325 MG Tablet) 5 MG-325 MG TABLET 1 TAB PO BID PRN PAIN Tamsulosin HCl (Flomax) 0.4 MG CAP.ER.24H 1 CAP PO DAILY KIDNEY STONE Triage Note: PT C/O ABDOMINAL PAIN AND RIGHT FLANK PAIN X 3 DAYS. STATES GETTING WORSE. TAKING MOTRIN WITHOUT RELIEF. +NAUSEA. PT STATES PAINFUL URINATION Triage Nurses Notes Reviewed? yes : No Patient currently breastfeeds: No HPI: Patient is a 41-year-old female with past medical history of recurrent ureterolithiasis status post lithotripsy several years ago who presents today with right-sided flank pain. She reports the pain has been present for the past several days, and is worse this morning. She states that she has pain with urination and has noticed darker urine unusual. She suspects a recurrent kidney stone. Upon initial encounter the patient is clearly very uncomfortable, unable to find a position of comfort in the [facility]. She indicates her right CVA region as her area of highest pain. Past History Travel History Traveled to [place] past 21 day No Medical History Any Pertinent Medical History? 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 No Review of Systems Review of Systems Constitutional: Reports: see HPI. EENTM: Reports: no symptoms. Respiratory: Reports: no symptoms. Cardiovascular: Reports: no symptoms. GI: Reports: abdominal pain, nausea. Denies: constipation, diarrhea, distention, melena. Genitourinary: Reports: no symptoms. Musculoskeletal: Reports: see HPI, back pain. Skin: Reports: no symptoms. Neurological/Psychological: Reports: no symptoms. Hematologic/Endocrine: Reports: no symptoms. Immunologic/Allergic: Reports: no symptoms. All Other Systems: Reviewed and Negative Physical Exam Physical Exam General Appearance: well developed/nourished, moderate distress Comments: HEENT: Inspection of the head reveals a normocephalic cranium with no signs of trauma. Ophtho: Extraocular muscles are intact and pupils are equal and reactive to light bilaterally with no afferent pupillary defect. The sclera are noninjected , and there is no obvious discharge. Neck: The trachea is midline, there is no obvious asymmetry or mass over the thyroid, and there is no midline cervical spine tenderness Respiratory: The lungs are clear and equal to auscultation bilaterally without wheezes, rales, or rhonchi. The patient exhibits no signs of labored breathing. Cardiac: Regular rhythm and non-tachycardic without appreciable murmurs on auscultation. No obvious JVD. GI: Examination of the abdomen reveals no significant focal tenderness in any of the four quadrants. There is negative Ling's sign, negative McBurney's point tenderness, negative Jayme sign, negative Blas-Bautista sign, and no signs of peritonitis whatsoever on percussion or deep palpation. The skin is intact with no sign of trauma or infection. Back: Right CVA region tenderness wrapping around the right flank toward the right lower quadrant and a ureteral distribution : Subjective dysuria Neuro: The patient is oriented to person, place, time, and situation, with no obvious focal motor deficits. There were no sensory deficits, and the patient exhibit purposeful movement of all 4 extremities. Cranial nerves II through XII are intact, and gait is normal. Behavioral: In significant discomfort, anxious regarding symptoms. Dermatologic: Dermatologic examination reveals no diffuse rashes or exanthems, no petechiae, no ecchymoses, and no other signs of erythema or infection. Core Measures ACS in differential dx? No CVA/TIA Diagnosis: No Sepsis Present: No Sepsis Focused Exam Completed? No Progress Differential Diagnoses I considered the following diagnoses in my evaluation of the patient: Ureterolithiasis, nephrolithiasis, cystitis, appendicitis, peritonitis, pancreatitis, cholecystitis Plan of Care: Orders Procedure Date/time Status Add-on Test (ER Only) 08/05 857 Active HUMAN BETA HCG SCREEN 08/06 739 Complete URINE 08/05 730 Complete URINALYSIS 08/05 730 Complete COMPREHENSIVE METABOLIC PANEL 08/05 730 Complete CBC WITHOUT DIFFERENTIAL 08/05 730 Complete Laboratory Tests 08/05/17 1113: Urine Color YEL, Urine Clarity HAZY H, Urine pH 6.5, Ur Specific [place] 1.020, Urine Protein NEG, Urine Ketones 15 H, Urine Nitrite NEG, Urine Bilirubin NEG, Urine Urobilinogen 0.2, Ur Leukocyte Esterase NEG, Ur Microscopic SEDIMENT EXAMINED, Urine RBC 3-5, Urine WBC 1-3 H, Ur Epithelial Cells FEW, Urine Bacteria FEW H, Urine Mucus FEW, Urine Hemoglobin MOD H, Urine Glucose NEG, Urine Test NEGATIVE 08/05/17 0740: Anion Gap 11, Estimated GFR > 60, BUN/Creatinine Ratio 13.8, Glucose 100 H, Calcium 9.3, Total Bilirubin 0.5, AST 13 L, ALT 24, Alkaline Phosphatase 65, Total Protein 7.6, Albumin 4.3, Globulin 3.3, Albumin/Globulin Ratio 1.3, Total Beta HCG NEGATIVE, CBC w Diff NO MAN DIFF REQ, RBC 3.75 L, MCV 80.6 L, MCH 26.2 L, MCHC 32.5 L, RDW 19.6 H, MPV 8.5, Gran % 64.4, Lymphocytes % 24.3, Monocytes % 7.0, Eosinophils % 3.1, Basophils % 1.2, Absolute Granulocytes 3.6, Absolute Lymphocytes 1.3, Absolute Monocytes 0.4, Absolute Eosinophils 0.2, Absolute Basophils 0.1 08/05/17 0706: Urine Color Cancelled, Urine Clarity Cancelled, Urine pH Cancelled, Ur Specific [place] Cancelled, Urine Protein Cancelled, Urine Ketones Cancelled, Urine Nitrite Cancelled, Urine Bilirubin Cancelled, Urine Urobilinogen Cancelled, Ur Leukocyte Esterase Cancelled, Ur Microscopic Cancelled, Urine Hemoglobin Cancelled, Urine Glucose Cancelled Initial ED EKG: none Comments: Patient presented today with flank pain concerning for ureterolithiasis. She has had this condition several times in the past and has required lithotripsy time. I obtained laboratory studies which showed a normal creatinine, and a CT which did not visualize a ureteral stone but found sequelae of a likely distal stone in the left ureter, not the right. Multiple renal stones were seen all 3 mm in size. She had a normal creatinine and a urine which did not suggest infection. Her pain was controlled with serial dosages of hydromorphone and 1 dosage of ketorolac which was ministered after confirmation of normal creatinine. I discussed the case with Dr. Baker, her urologist, who agreed with the plan for outpatient management and stated that he would have his staff call her this week within the next 24 hours to set up outpatient lithotripsy. Medical screening examination otherwise negative, hydromorphone 2 mg by mouth and tamsulosin 0.4 mg by mouth sent to pharmacy. Discharged home in stable condition. Departure Departure Time of Disposition: 1324 Disposition: HOME OR SELF CARE Condition: Stable Clinical Impression Primary Impression: Ureterolithiasis Referrals: Dylan Baker MD Additional Instructions: Please use the Flomax daily and the hydromorphone (Dilaudid) as infrequently as possible for breakthrough severe pain. Otherwise, please use naproxen (Aleve) for routine pain. Urinate through the strainer we provided and make an appointment with urology at the number seen here. Dr. Baker is aware of your situation and stated that he would have his office call you within the next several days to set up lithotripsy. If you do not hear from them, please call the attached number to set up an appointment. Departure Forms: Customer Survey General Discharge Information Prescriptions: Current Visit Scripts Tamsulosin HCl (Flomax) 1 CAP PO DAILY #10 CAP Hydromorphone HCl (Dilaudid) 2 TAB PO Q6P PRN PAIN #12 TAB Critical Care Note Critical Care Note Critical Care Time: non-applicable
[2017-08-05 07:45] LABS: ABSOLUTE BASOPHIL COUNT 0.1 /CUMM (0.0-0.2); ABSOLUTE EOSINOPHIL COUNT 0.2 /CUMM (0.0-0.7); ABSOLUTE GRANULOCYTE CT 3.6 /CUMM (1.4-6.5); ABSOLUTE LYMPH COUNT 1.3 /CUMM (1.2-3.4); ABSOLUTE MONOCYTE COUNT 0.4 /CUMM (0.10-0.60); BASOPHIL % 1.2 % (0.0-2.0); EOSINOPHIL % 3.1 % (0-5); GRANULOCYTE % 64.4 % (42.2-75.2); HEMATOCRIT 30.2 % (37-47); MEAN CORPUSCULAR HGB 26.2 PG (27.0-31.0); MEAN CORPUSCULAR HGB CONC 32.5 G/DL (33.0-37.0); MEAN CORPUSCULAR VOLUME 80.6 FL (81.0-99.0); MEAN PLATELET VOLUME 8.5 FL (7.4-10.4); PLATELET COUNT 385 /CUMM (130-400); RBC DISTRIBUTION WIDTH 19.6 % (11.5-14.5); RED BLOOD CELL CT 3.75 /CUMM (4.20-5.40); WHITE BLOOD CELL COUNT 5.5 /CUMM (4.8-10.8)
--- NOTE | 2017-08-05 10:03 | CT SCAN REPORT ---
EXAMINATION: CT ABDOMEN AND PELVIS WITHOUT CONTRAST CLINICAL INFORMATION: Abdominal pain. History of kidney stone COMPARISON: CT abdomen and pelvis 06/28/2016 TECHNIQUE: Multidetector volumetric imaging was performed from the superior aspect of the liver through the pubic symphysis. Sagittal and coronal reformatted images were obtained on the technologist's workstation. DLP: 237 mGy-cm FINDINGS: LUNG BASES: The visualized lung bases are unremarkable. LIVER, GALLBLADDER, AND BILIARY TREE: The liver is normal in size, shape, and attenuation. No focal hepatic lesion or biliary ductal dilatation is present. The gallbladder is unremarkable with no evidence of radiopaque gallstones, gallbladder wall thickening, or obvious pericholecystic inflammatory changes. PANCREAS: Unremarkable. SPLEEN: Unremarkable. ADRENAL GLANDS: Unremarkable. KIDNEYS AND URETERS: There is a 3 mm upper pole, 3 mm midpole and a 3 mm lower pole radiopaque calculi left kidney without caliectasis or punctate 1-tumor radiopaque calculi midpole and lower pole right kidney without caliectasis or hydronephrosis. These are better visualized on the sagittal reconstructed views is no hydronephrosis seen. A tubular radiopaque calculi left distal ureter axial image 63, series 2 is suspected BLADDER: The bladder is nondistended and appears unremarkable. GASTROINTESTINAL TRACT: There is moderate stool seen throughout the colon without distention. The small bowel loops are normal caliber. The appendix appears normal caliber. No inflammatory process seen. Rest ABDOMINAL WALL: An umbilical hernia containing fat is noted. There is thinning of the left inferior rectus muscle close to the proximal physis when compared to the right side LYMPH NODES: None. VASCULAR: Unremarkable. PELVIC VISCERA: Unremarkable. OSSEOUS STRUCTURES: Unremarkable. IMPRESSION: Nonobstructive bilateral left renal lithiasis. No hydronephrosis. Suspect nonobstructive left distal ureteral stone. Mild constipation. Asymmetric lower anterior abdominal wall rectus muscle.
[2017-08-05 12:37] VITALS: BP 98/52
[2017-08-05] MEDS ORDERED: DILAUDID2 M1 PO (13:12)
[2017-08-05] MEDS ORDERED: FLOMAX0.4 M1 PO (13:12)
--- NOTE | 2017-08-05 18:06 | Cons- Urology ---
General Information and HPI Consulting Request Date of Consult: 08/05/17 Requested By: DO Loredo Douglas-KRYSTA Reason for Consult: right coliic with hydro. Source of Information: patient, old records Exam Limitations: no limitations History of Present Illness: 41yr old with new onset RIGHT renal colic: no N/V/Fever/Chills: pain managed with narcotics well in ER: Pt examined and CT reviewed with pt: plan is DC home with flomax and pain meds. F/U for ureteroscopy right side soon if pain not resolved. Allergies/Medications Allergies: Coded Allergies: No Known Allergies (06/28/16) Home Med List: Hydromorphone HCl (Dilaudid) 2 MG TABLET 2 TAB PO Q6P PRN PAIN Hyoscyamine (Levsin) 0.125 MG TABLET 1 TAB PO Q4 PRN ABDOMINAL SPASMS Ibuprofen (I-Prin) 200 MG TABLET 2-4 TAB PO PRN PAIN (Reported) Oxycodone HCl/Acetaminophen (Percocet 5-325 MG Tablet) 5 MG-325 MG TABLET 1 TAB PO BID PRN PAIN Tamsulosin HCl (Flomax) 0.4 MG CAP.ER.24H 1 CAP PO DAILY KIDNEY STONE Current Medications: Current Medications Sig/Simone Start time Last Medication Dose Route Stop Time Status Admin Hydromorphone HCl 1 MG ONCE ONE 08/05 1130 DC 08/05 IV 08/05 1131 1127 Hydromorphone HCl 0 .STK-MED ONE 08/05 1130 DC .ROUTE Hydromorphone HCl 1 MG ONCE ONE 08/05 0745 DC 08/05 IV 08/05 0746 0740 Hydromorphone HCl 0 .STK-MED ONE 08/05 0743 DC .ROUTE Ketorolac 0 .STK-MED ONE 08/05 1054 DC Tromethamine .ROUTE Ketorolac 30 MG ONCE ONE 08/05 1030 DC 08/05 Tromethamine IV 08/05 1031 1048 Ondansetron HCl 4 MG ONCE ONE 08/05 0745 DC 08/05 IV 08/05 0746 0740 Ondansetron HCl 0 .STK-MED ONE 08/05 0742 DC .ROUTE Past History Medical History Neurological: NONE EENT: NONE Cardiovascular: NONE Respiratory: NONE Gastrointestinal: PANCREATITIS Hepatic: NONE Renal: nephrolithiasis, KIDNEY STENT/REMOVED Musculoskeletal: NONE Psychiatric: NONE Endocrine: NONE Blood Disorders: anemia Cancer(s): NONE 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 Ambulation: independent IADLs Independent: shopping, housework, finances, food prep, telephone, transportation , medication admin. Employment History Retired? unknown Review of Systems Review of Systems Constitutional: Reports: see HPI. EENTM: Denies: no symptoms. Cardiovascular: Denies: no symptoms. Respiratory: Denies: no symptoms. Genitourinary: Denies: no symptoms. Musculoskeletal: Denies: no symptoms. Skin: Denies: no symptoms. Exam & Diagnostic Data Vital Signs and I&O Vital Signs Date Time Temp Pulse Resp B/P B/P Pulse O2 O2 Flow FiO2 Mean Ox Delivery Rate 08/05 1237 98.2 64 18 98/52 96 08/05 1043 99.0 70 18 102/58 96 Room Air 08/05 0838 98.5 64 18 94/56 100 Room Air 08/05 0704 98.5 88 20 112/76 98 Room Air Intake & Output 08/05 1600 08/05 0800 08/05 0000 08/04 1600 08/04 0800 08/04 0000 Intake Total 0 Output Total Balance 0 Intake, Oral 0 Patient 147 lb Weight Weight Reported by Patient Measurement Method Physical Exam General Appearance: well developed/nourished, mild distress Head: atraumatic Eyes: Bilateral: normal appearance. Neck: normal inspection Respiratory: normal breath sounds Cardiovascular: regular rate/rhythm Back: CVA tenderness (R) Extremities: normal inspection Skin: intact, normal color, warm/dry Last 24 Hours of Labs: Laboratory Tests 08/05 08/05 1113 0740 Chemistry Sodium (137 - 145 mmol/L) 143 Potassium (3.5 - 5.1 mmol/L) 4.1 Chloride (98 - 107 mmol/L) 108 H Carbon Dioxide (22 - 30 mmol/L) 25 Anion Gap (5 - 16) 11 BUN (7 - 17 mg/dL) 11 Creatinine (0.5 - 1.0 mg/dL) 0.8 Estimated GFR (>60 ml/min) > 60 BUN/Creatinine Ratio (7 - 25 %) 13.8 Glucose (65 - 99 mg/dL) 100 H Calcium (8.4 - 10.2 mg/dL) 9.3 Total Bilirubin (0.2 - 1.3 mg/dL) 0.5 AST (14 - 36 U/L) 13 L ALT (9 - 52 U/L) 24 Alkaline Phosphatase (<127 U/L) 65 Total Protein (6.3 - 8.2 g/dL) 7.6 Albumin (3.5 - 5.0 g/dL) 4.3 Globulin (1.9 - 4.2 gm/dL) 3.3 Albumin/Globulin Ratio (1.1 - 2.2 %) 1.3 Total Beta HCG (NEGATIVE) NEGATIVE Hematology CBC w Diff NO MAN DIFF REQ WBC (4.8 - 10.8 /CUMM) 5.5 RBC (4.20 - 5.40 /CUMM) 3.75 L Hgb (12.0 - 16.0 G/DL) 9.8 L Hct (37 - 47 %) 30.2 L MCV (81.0 - 99.0 FL) 80.6 L MCH (27.0 - 31.0 PG) 26.2 L MCHC (33.0 - 37.0 G/DL) 32.5 L RDW (11.5 - 14.5 %) 19.6 H Plt Count (130 - 400 /CUMM) 385 MPV (7.4 - 10.4 FL) 8.5 Gran % (42.2 - 75.2 %) 64.4 Lymphocytes % (20.5 - 51.1 %) 24.3 Monocytes % (1.7 - 9.3 %) 7.0 Eosinophils % (0 - 5 %) 3.1 Basophils % (0.0 - 2.0 %) 1.2 Absolute Granulocytes (1.4 - 6.5 /CUMM) 3.6 Absolute Lymphocytes (1.2 - 3.4 /CUMM) 1.3 Absolute Monocytes (0.10 - 0.60 /CUMM) 0.4 Absolute Eosinophils (0.0 - 0.7 /CUMM) 0.2 Absolute Basophils (0.0 - 0.2 /CUMM) 0.1 Urines Urine Color (YEL,AMB,STR) YEL Urine Clarity (CLEAR) HAZY H Urine pH (5.0 - 8.0) 6.5 Ur Specific [place] (1.001 - 1.035) 1.020 Urine Protein (NEG,<30 MG/DL) NEG Urine Ketones (NEG) 15 H Urine Nitrite (NEG) NEG Urine Bilirubin (NEG) NEG Urine Urobilinogen (0.1 - 1.0 EU/dl) 0.2 Ur Leukocyte Esterase (NEG) NEG Ur Microscopic SEDIMENT EXAMINED Urine RBC (0 - 5 /HPF) 3-5 Urine WBC (0 - 2 /HPF) 1-3 H Ur Epithelial Cells (NONE,FEW) FEW Urine Bacteria (NEG/NONE) FEW H Urine Mucus (FEW,NONE) FEW Urine Hemoglobin (NEG) MOD H Urine Glucose (N MG/DL) NEG Urine Test NEGATIVE 08/05 0706 Urines Urine Color Cancelled Urine Clarity Cancelled Urine pH Cancelled Ur Specific [place] Cancelled Urine Protein Cancelled Urine Ketones Cancelled Urine Nitrite Cancelled Urine Bilirubin Cancelled Urine Urobilinogen Cancelled Ur Leukocyte Esterase Cancelled Ur Microscopic Cancelled Urine Hemoglobin Cancelled Urine Glucose Cancelled Imaging Results: PATIENT: SILKE DA SILVA PRESENT AGE: 41 PATIENT ACCOUNT NO: [id number] : 76 LOCATION: [facility] [place] ORDERING PHYSICIAN: Aleksandar Loredo DO SERVICE DATE: 08/05/17 EXAM TYPE: CAT - CT ABD & PELVIS W/O IV CONTRAS EXAMINATION: CT ABDOMEN AND PELVIS WITHOUT CONTRAST CLINICAL INFORMATION: Abdominal pain. History of kidney stone COMPARISON: CT abdomen and pelvis 06/28/2016 TECHNIQUE: Multidetector volumetric imaging was performed from the superior aspect of the liver through the pubic symphysis. Sagittal and coronal reformatted images were obtained on the technologist's workstation. DLP: 237 mGy-cm FINDINGS: LUNG BASES: The visualized lung bases are unremarkable. LIVER, GALLBLADDER, AND BILIARY TREE: The liver is normal in size, shape, and attenuation. No focal hepatic lesion or biliary ductal dilatation is present. The gallbladder is unremarkable with no evidence of radiopaque gallstones, gallbladder wall thickening, or obvious pericholecystic inflammatory changes. PANCREAS: Unremarkable. SPLEEN: Unremarkable. ADRENAL GLANDS: Unremarkable. KIDNEYS AND URETERS: There is a 3 mm upper pole, 3 mm midpole and a 3 mm lower pole radiopaque calculi left kidney without caliectasis or punctate 1-tumor radiopaque calculi midpole and lower pole right kidney without caliectasis or hydronephrosis. These are better visualized on the sagittal reconstructed views is no hydronephrosis seen. A tubular radiopaque calculi left distal ureter axial image 63, series 2 is suspected BLADDER: The bladder is nondistended and appears unremarkable. GASTROINTESTINAL TRACT: There is moderate stool seen throughout the colon without distention. The small bowel loops are normal caliber. The appendix appears normal caliber. No inflammatory process seen. Rest ABDOMINAL WALL: An umbilical hernia containing fat is noted. There is thinning of the left inferior rectus muscle close to the proximal physis when compared to the right side LYMPH NODES: None. VASCULAR: Unremarkable. PELVIC VISCERA: Unremarkable. OSSEOUS STRUCTURES: Unremarkable. IMPRESSION: Nonobstructive bilateral left renal lithiasis. No hydronephrosis. Suspect nonobstructive left distal ureteral stone. Mild constipation. Asymmetric lower anterior abdominal wall rectus muscle. DICTATED BY: Yissel POTTS,Immanuel DATE/TIME DICTATED:08/05/17950 METAL FURNITURE PANEL COVERER:DEB DATE/TIME TRANSCRIBED:08/05/17950 CONFIDENTIAL, DO NOT COPY WITHOUT APPROPRIATE AUTHORIZATION. <Electronically signed in Other Vendor System> SIGNED BY: Yissel POTTS,Immanuel 08/05/17 1003 Assessment/Plan Assessment/Plan severe right colic now under control with narcotics:plan is dc home with flomax/ pain meds:if not resolved, will take to OR for ureteroscopy. Copies To: Dylan Baker MD Consult Acknowledgment - Thank you for your consult request. Attending MD Review Statement Attending Statement Attending MD Statement: examined this patient, discuss w/resident/PA/OCCUPATIONAL THERAPIST ASSISTANTS Attending Assessment/Plan: right colic: see above notes
== END 2017-08-05 13:35 ==
LOC: ERH 06:46
PROVIDERS: Student in an Organized Health Care Education/Training Program
DX: N20.1 Calculus of ureter (principal); R10.9 Unspecified abdominal pain; R30.0 Dysuria
CPT/HCPCS: 74176; 81001; 81025; 96374; 96375; 96376; J1885; J2405

== ENCOUNTER → 2017-08-06 | Day surgery (SDC) | payer OTHER ==
[~2017-08-06] VITALS: Ht 167.6 cm; Wt 65.8 kg
[~2017-08-06] MED LIST changes: +DILAUDID2 M1 PO; +FLOMAX0.4 M1 PO
--- NOTE | 2017-08-06 14:41 | RADIOLOGY REPORT ---
EXAMINATION: XR ABDOMEN CLINICAL INDICATION: Right ureteroscopy. COMPARISON: CT scan of the abdomen and pelvis 08/05/2017. TECHNIQUE: 2 intraprocedural views of the right abdomen and pelvis were obtained. FINDINGS: The images demonstrate retrograde pyelography, with opacification of the right ureter and renal collecting system. Further details of the procedure could be obtained in the surgical notes. FLUOROSCOPY TIME: 0.4 minutes. IMPRESSION: 1. 2 intraprocedural images from right ureteroscopy.
--- NOTE | 2017-08-06 16:17 | Operative Report ---
Operative/Inv Procedure Report Surgery Date: 08/06/17 Name of Procedure: cystoscopy: right flexible ureteroscopy with fluorosocopy: Pre-Operative Diagnosis: right severe colic with stones. Post-Operative Diagnosis: same Estimated Blood Loss: scant Surgeon/[employer] Supervisor: Dylan Baker MD Anesthesia: laryngeal mask airway Complications: none Operative/Procedure Note Note: The patient was taken to the operating room and placed on the OR table in supine position. Timeout was performed in order to confirm correct patient, procedure, laterality, and other pertinent information with pt. awake. After adequate anesthesia, and antibiotics, the patient was then placed in yellow-fin lithotomy stirrups, draped and prepped in the usual surgical fashion. A 22 Upper Sorbian cystoscope sheath with 30 angle lens was inserted into the bladder without difficulty. Upon entering the bladder, the bladder was noted to be free of tumor , free of stone. Both orifices were in their orthotopic position. The right ureter orifice was intubated with an 8fr cone-tip catheter and a retrograde pyelogram with fluoroscopy was performed. No filling defect was seen. The cone- tipped catheter was removed, followed by insertion of a 0.035 Glidewire, which was advanced into the right renal pelvis without difficulty, and placement was confirmed on fluoroscopy. Leaving the Glidewire in place, and the flexible ureteroscope was inserted over the gluidewire into the bladder. The flexible ureteroscope was advanced up the right ureter with fluoroscopy visualization, following the gluidewire. Pyeloscopy and calyxoscopy, of the upper, middle, and lower poles reveal a stone which was grasped with the basket and extracted: THere was no evidence of tumor. Additionally, no stones, nor any tumor was visualized in the renal pelvis. The entire length of the ureter was also visualized carefully on the way out. All sponge, needle, and instrument count were correct at the end of the case. The patient tolerated the procedure well, and was then taken to the recovery room in satisfactory condition. Discharge Disposition: Same Day Admissions CC: Dylan Baker MD
== END ==
LOC: STS 07:00
DX: N20.1 Calculus of ureter (principal); Z87.442 Personal history of urinary calculi; Z87.19 Personal history of other diseases of the digestive system; F17.200 Nicotine dependence, unspecified, uncomplicated; G43.909 Migraine, unspecified, not intractable, without status migrainosus
CPT/HCPCS: 74018; J2250